=== PATIENT | female | born 1975 | race Caucasian/White ===

== ENCOUNTER → 2016-06-14 | Outpatient (CLI) | payer BC ==
[~2016-06-14] MED LIST: ADDE30TA PO; AMOX500T PO; BENA25TA3 PO; GABA300C5 PO; HALO1TAB PO; IBUP-232 PO; KETO10 PO; OMEP40CA2 PO; PERC10TA27 PO; ROBA500T PO; SOMA250T PO; SOMA350T PO; TRAM50TA PO; VENL75XR PO; XANA1TAB2 PO; ZANA4CAP PO
--- NOTE | 2016-06-14 12:53 | RADRPT ---
EXAM DATE/TIME: 06/14/2016 12:25 [facility] COMPARISON: No previous studies available for comparison. INDICATIONS : Evaluate for pneumothorax,pneumonia and communicable diseases. Pre-op neck surgery MEDICAL HISTORY : None. SURGICAL HISTORY : None. ENCOUNTER: Initial ACUITY: 1 day PAIN SCORE: 0/10 LOCATION: chest FINDINGS: PA and lateral views of the chest demonstrate the lungs to be symmetrically aerated without evidence of mass, infiltrate or effusion. The cardiomediastinal contours are unremarkable. Osseous structure s are intact. CONCLUSION: Normal examination. Ana Lundberg MD on June 14, 2016 at 12:51 Board Certified Radiologist. This report was verified electronically.
--- NOTE | 2016-06-15 11:31 | EKG ---
Date Performed: 06/14/2016 Time Performed: 11:55:16 PTAGE: 40 years EKG: Sinus rhythm Since previous tracing, no significant change noted NORMAL ECG PREVIOUS TRACING : 06/19/2008 13.41.34 DOCTOR: Faraz Boateng Interpretating Date/Time 06/15/2016 11:30:28
== END ==
LOC: CPRE 11:16
PROVIDERS: ATTEND Neurological Surgery
DX: Z01.810 Encounter for preprocedural cardiovascular examination (principal); Z01.811 Encounter for preprocedural respiratory examination; M48.02 Spinal stenosis, cervical region
CPT/HCPCS: 71020; 93005

== ENCOUNTER 2016-06-20 10:59 | Observation (INO) | payer BC ==
[~2016-06-20] VITALS: Ht 160 cm; Wt 53.4 kg
[~2016-06-20 10:59] MED LIST changes: -AMOX500T PO; -BENA25TA3 PO; -GABA300C5 PO; -KETO10 PO; +LACTATED RINGER'S 1000 ML INJ 1,000 ML IV ONE; +MORPHINE SULFATE 4 MG/ML INJ ONE; +NEOSTIGMINE 3 MG/3 ML SYR IV ONE; -OMEP40CA2 PO; +ONDANSETRON HCL 4 MG/2 ML VIAL IV PUSH ONE; +PROPOFOL 200 MG/20 ML AMP IV ONE; -ROBA500T PO; -SOMA350T PO; -TRAM50TA PO; -ZANA4CAP PO; +fentaNYL CITRATE 250 MCG/5 ML AMP ONE
[2016-06-20] MEDS ORDERED: SOMA350T PO (11:43)
[2016-06-20 11:48] VITALS: BP 94/60; PULSE 72; RESP 16; TEMP 98; O2SAT 97
[2016-06-20] MEDS ORDERED: INSULIN HUMAN REGULAR 1,000 UNITS/10 ML VIAL SQ PRN (12:00)
[2016-06-20] MEDS ORDERED: METOPROLOL TARTRATE 25 MG TAB PO PRN (12:00)
[2016-06-20] MEDS ORDERED: LACTATED RINGER'S 1000 ML IV SCH (12:00)
[2016-06-20] MEDS ORDERED: SODIUM CHLORID 0.9% 500 ML IV SCH (12:00)
[2016-06-20] MEDS ORDERED: oxyCODONE/ACETAMINOPHEN 10 MG/325 MG TAB PO ONE (12:30)
[2016-06-20] MEDS ORDERED: MIDAZOLAM HCL 5 MG/5 ML VIAL ONE (14:57)
[2016-06-20] MEDS ORDERED: ALPRAZolam 1 MG TAB PO PRN (15:00)
[2016-06-20] MEDS ORDERED: BISACODYL 10 MG SUPP PR PRN (15:00)
[2016-06-20] MEDS ORDERED: SODIUM CHLORIDE 0.9% FLUSH 5 ML FLUSH IVF PRN (15:00)
[2016-06-20] MEDS ORDERED: ACETAMINOPHEN/HYDROcodone 325 MG/10 MG TAB PO PRN ×2 (15:00)
[2016-06-20] MEDS: ceFAZolin 2 GM PREMIX 50 ML IV SCH ×3 (15:00→22:40)
[2016-06-20] MEDS ORDERED: MENTHOL LOZENGE SUCK-ON PRN (15:00)
[2016-06-20] MEDS ORDERED: IBUPROFEN 600 MG TAB PO PRN (15:00)
[2016-06-20] MEDS ORDERED: ONDANSETRON HCL 4 MG/2 ML VIAL IV PRN (15:00)
[2016-06-20] MEDS ORDERED: MORPHINE SULFATE 4 MG/ML INJ IV PUSH PRN (15:00)
[2016-06-20] MEDS ORDERED: ACETAMINOPHEN 325 MG TAB PO PRN (15:00)
[2016-06-20] MEDS ORDERED: oxyCODONE/ACETAMINOPHEN 10 MG/325 MG TAB PO PRN (15:00)
[2016-06-20] MEDS ORDERED: PERC10TA27 PO (15:03)
[2016-06-20] MEDS ORDERED: VANCOMYCIN HCL 1000 MG VIAL OTHER ONE (15:28)
[2016-06-20] MEDS ORDERED: GENTAMICIN SULFATE 80 MG/2 ML VIAL IRRIGATION ONE (16:02)
[2016-06-20] MEDS ORDERED: THROMBIN (TOPICAL) 5,000 UNIT VIAL TOPICAL ONE (16:02)
[2016-06-20] MEDS ORDERED: GELFOAM SIZE 100 TOP ONE (16:02)
[2016-06-20] MEDS ORDERED: NICOTINE 14 MG/24 HR PATCH TD ONE (17:45)
[2016-06-20] MEDS: NS + KCL 20 MEQ INJ 1,000 ML IV SCH (17:52)
[2016-06-20] MEDS ORDERED: *morphine SULFATE 8 MG/ML PERIprocedure ONLY ONE ×4 (17:54→21:09)
[2016-06-20] MEDS ORDERED: DO NOT ADM ANY ANTICOAGULANT DRUGS XX PRN (18:00)
[2016-06-20] MEDS: DEXAMETHASONE SOD PHOS 4 MG/ML VIAL IV SCH ×2 (18:05→22:40)
[2016-06-20] MEDS: CARISOPRODOL 350 MG TAB PO PRN (18:19)
[2016-06-20] MEDS: DEXTROAMPHETAMINE/AMPHETAMINE 30 MG TAB PO SCH (18:28)
--- NOTE | 2016-06-20 18:51 | RADRPT ---
EXAM DATE/TIME: 06/20/2016 15:38 [facility] COMPARISON: No previous studies available for comparison. INDICATIONS : Artificial disc placement C4, C5. MEDICAL HISTORY : None. SURGICAL HISTORY : Fusion, cervical. ENCOUNTER: Initial ACUITY: 1 day PAIN SCORE: Non-responsive. LOCATION: Cervical spine. FINDINGS: The patient is status post anterior cervical fusion at C5-C6. Artificial disc is seen at C4-C5. Ali gnment is anatomic. CONCLUSION: Anatomic alignment. Judson Donnelly MD FACR on June 20, 2016 at 18:16 Board Certified Radiologist. This report was verified electronically.
[2016-06-20] MEDS: VENLAFAXINE HCL XR 75 MG CAP PO SCH (19:35)
[2016-06-20] MEDS: CYCLOBENZAPRINE HCL 10 MG TAB PO PRN (19:52)
[2016-06-20] MEDS: MORPHINE SULFATE 4 MG/ML INJ IV PUSH PRN (19:55)
[2016-06-20 20:24] VITALS: BP 119/69; PULSE 77; O2SAT 98
[2016-06-20 20:30] VITALS: BP 113/70; PULSE 76; O2SAT 98
[2016-06-20] MEDS: REMOVE OLD NICODERM (NICOTINE) PATCH TD SCH (20:30)
[2016-06-20] MEDS: HALOPERIDOL 1 MG TAB PO SCH (20:40)
[2016-06-20] MEDS: DOCUSATE SODIUM 100 MG CAP PO SCH (20:48)
[2016-06-20] MEDS: SODIUM CHLORIDE 0.9% FLUSH 5 ML FLUSH IVF SCH (20:48)
[2016-06-20 21:00] VITALS: BP 118/79; PULSE 80; O2SAT 97
[2016-06-20 21:30] VITALS: BP 125/75; PULSE 76; O2SAT 94
[2016-06-20 22:00] VITALS: BP 124/73; PULSE 76; TEMP 97.9; O2SAT 96
[2016-06-21] MEDS: ceFAZolin 2 GM PREMIX 50 ML IV SCH (00:35)
[2016-06-21] MEDS: MORPHINE SULFATE 4 MG/ML INJ IV PUSH PRN ×5 (00:35→10:02)
[2016-06-21] MEDS: CARISOPRODOL 350 MG TAB PO PRN (01:44)
[2016-06-21 04:00] VITALS: BP 102/69; PULSE 74; RESP 18; TEMP 97.6; O2SAT 97
[2016-06-21] MEDS: DEXAMETHASONE SOD PHOS 4 MG/ML VIAL IV SCH (05:25)
[2016-06-21 08:00] VITALS: BP 107/70; PULSE 87; RESP 16; TEMP 97.9; O2SAT 97
[2016-06-21] MEDS ORDERED: NICOTINE 14 MG/24 HR PATCH TD SCH (09:00)
[2016-06-21] MEDS ORDERED: PANTOPRAZOLE SOD 40 MG DELAYED RELEASE TAB PO SCH (09:00)
[2016-06-21] MEDS: REMOVE OLD NICODERM (NICOTINE) PATCH TD SCH (09:00)
[2016-06-21] MEDS: HALOPERIDOL 1 MG TAB PO SCH (09:00)
[2016-06-21] MEDS: VENLAFAXINE HCL XR 75 MG CAP PO SCH (09:37)
[2016-06-21] MEDS: SODIUM CHLORIDE 0.9% FLUSH 5 ML FLUSH IVF SCH (09:37)
[2016-06-21] MEDS: CYCLOBENZAPRINE HCL 10 MG TAB PO PRN (09:37)
[2016-06-21] MEDS: DEXTROAMPHETAMINE/AMPHETAMINE 30 MG TAB PO SCH (09:37)
--- NOTE | 2016-06-21 09:51 | HHI.DCPOC ---
Discharge Care Plan Diagnosis: (1) S/P cervical discectomy Goals to Promote Your Health * To prevent worsening of your condition and complications * To maintain your health at the optimal level Directions to Meet Your Goals Take your medications as prescribed Follow your dietary instruction Follow activity as directed Keep your appointments as scheduled Take your immunizations and boosters as scheduled If your symptoms worsen call your PCP, if no PCP go to Urgent Care Center or Emergency Room Smoking is Dangerous to Your Health. Avoid second hand smoke Call the 24-hour hour crisis hotline for domestic abuse at Aria Flores Jun 21, 2016 09:51
[2016-06-21] MEDS: DOCUSATE SODIUM 100 MG CAP PO SCH (10:02)
[2016-06-21] MEDS: NS + KCL 20 MEQ INJ 1,000 ML IV SCH (10:30)
--- NOTE | 2016-06-21 15:44 | PD.OP ---
Operative Report Date of Surgery: Jun 20, 2016 Preoperative Diagnosis: C4-5 DISK HERNIATION Postoperative Diagnosis: C4-5 DISK HERNIATION Procedure: C4-5 anterior cervical discectomy and arthroplasty using Mobi C Anesthesia: general Surgeon: Osman Yo Patient Support Tech(s): Ileana Randhawa Operation and Findings: INDICATIONS FOR THE PROCEDURE Ms Nguyen is a 40 year-old male who presented with intractable neck pain and clinical evidence of C5 cervical radiculopathy. She was found to have a disk herniation at C4-5 causing significant mass effect on the nerve roots. she failed multiple modalities of nonsurgical treatment including phsycal therapy, analgesics, antiinflammatories, and pain management with mulriple epidural steroid injections. The severity of her pain and symptoms were affecting her quality of life. An anterior cervical discectomy and arthroplasty were indicated. The [id number] details of the surgical procedure, indications, alternatives, risks and potential complications were fully discussed with the patient. The patient fully understood. All his questions were answered. No guarantees were given. He voiced requesting the procedure and signed informed consents. Dr Hardy was offered the alternative of delaying the procedure and continuing with nonsurgical management. DETAILS OF THE SURGICAL PROCEDURE SURGICAL APPROACH A skin incision was made along the middle to inferior cervical crease with a # 10 blade. The dissection was carried out through the platysma exposing the sternocleidomastoid muscle. The cervical spine was approached following the fascial layers of the neck, just medial to the anterior border of the sternocleidomastoid and carotid sheath by a combination of sharp and dull dissection. The omohyoid muscle was identified and carefully dissected laterally and the deep cervical fascia was carefully opened. The longus colli muscles were retracted to each side of the midline. A marker was placed at the c4-5 disc space and a cross-table lateral x-ray performed with a C-arm. An AP xray was then obtained as well, and the midline of the disk space was defined. SURGICAL DECOMPRESSION In order to decompress the anterior surface of the spinal cord it was necessary to perform a microsurgical resection of the disk. At this point in the procedure the operating microscope was draped in the usual sterile fashion and brought to the field. The rest of the surgical procedure was performed using microdissection technique with the exception of the closure. Under the operative microscopic a self-retaining retractor was placed underneath the longus colli muscle. The annulus was incised with a #15 blade and microdiscectomy was then carefully carried out using angled curets and pituitary forceps. The patient had a large disk extrusion which was producing mass affect on the exiting nerve root. This was carefully dissected with a nerve hock and resected with a think foot plate 2 mm Kerrison under high magnification. The posterior longitudinal ligament was then elevated with an angled curet and incised with a 15 bladed knife. A careful resection of the posterior longitudinal ligament was carried out using a thin footplate 2 mm Kerrison. Extruded disk fragments causing mechanical compression over the exiting C5 nerve root were carefully dissected. The decompression was then carried out laterally, and a bilateral foraminotomy was performed with a 2 mm thin foot Kerrison. The epidural space was the systematically assessed with a nerve hook in search for disk fragments of scar tissue. An excellent decompression was achieved in both, the dural sac and bilateral exiting nerve roots. The incision was then irrigated with a large amount of antibiotic solution INTERBODY ARTHROPLASTY In order to avoid collapse of the disk space which would result in bilateral foraminal stenosis, and in order to maintain disk space height and function minimally development of adjacent level degeneration, it was necessary to place an interbody device. At this point of the procedure, gentle distraction was applied. The size of the interbody device was then assessed using a trial, and a cross table xray was done for confirmation of appropriate size and position of the device. Then the disk space was irrigated with antibiotic solution, and a 15mm by 6mm Mobi C artificial disk was carefully impacted into the disc space C4-5. An excellent position of the device was achieved. This was confirmed anatomically by feeling the space posterior to the implant and distance to the anterior surface of the dural sac. Radiological confirmation of the position was performed with a cross table AP and lateral X-ray views, performed with the C-arm. COMPLETION OF THE SURGICAL PROCEDURE Once that each interbody device was in an appropriate position, the distraction was discontinued. The position of the device as well as alignment of the spine were assessed anatomically by direct visualization, and radiologically by performing an AP and lateral X-ray of the cervical spine with the C-arm. The position of the implant was excellent. The incision was irrigated with several liters of antibiotic solution. Hemostasis was achieved with a bipolar. A 7 mm Jarrell-Hart drain was left in the prevertebral space and externalized through a separate stab incision. The incision was then closed in layers. 3-0 Vicryl with interrupted sutures was used to close the platysma and subcutaneous tissue. The skin was closed with 4- 0 running subcuticular Vicryl and Dermabond was applied to the skin. The drain was secured with a 3-0 nylon. At the end of the procedure the sponge, needle and instrument counts were all correct. The estimated blood loss was less than 40-50 cc. No blood transfusion was given. No intraoperative complications occurred. The patient received prophylactic antibiotics. The patient was then extubated and transferred to the recovery room in stable condition. Osman Yo MD Jun 21, 2016 15:44
--- NOTE | 2016-06-21 15:48 | HHI.DS ---
Aria Flores 06/21/16 1548: Discharge Summary Admission Date Jun 20, 2016 at 14:58 Discharge Date: Jun 21, 2016 Admitting Diagnosis s/p anterior cervical disectomy and arthroplasty (1) S/P cervical discectomy Brief History Ms Nguyen is a 40 year-old male who presented with intractable neck pain and clinical evidence of C5 cervical radiculopathy. She was found to have a disk herniation at C4-5 causing significant mass effect on the nerve roots. she failed multiple modalities of nonsurgical treatment including physial therapy, analgesics, antiinflammatories, and pain management with multiple epidural steroid injections. The severity of her pain and symptoms were affecting her quality of life. An anterior cervical discectomy and arthroplasty were indicated. Imaging Last Impressions Cervical Spine X-Ray 06/20/16 0000 Signed Impressions: Service Date/Time: Monday, June 20, 2016 15:38 - CONCLUSION: Anatomic alignment. Judson Donnelly MD [facility] Hospital Course Ms. Nguyen underwent a C4-5 anterior cervical discectomy and arthroplasty using Mobi C on Jun 20, 2016. Her surgery went well without complications. She will be discharged home in stable conditions. Wound care, activity restrictions, and signs and symptoms to watch for were discussed. She will be discharged in stable conditions. Pt Condition on Discharge: Stable Discharge Disposition: Discharge Home Discharge Instructions DIET: Follow Instructions for: Heart Healthy Diet ACTIVITIES You can perform: Weight Bearing As Noe ADDITIONAL Activity Instructio: Avoid strenuous activities, heavy lifting, overhead activities, repetitive bending, twisting, pushing, pulling or any activities which might result in stress over the spine. Avoid situtation that will put at risk for falls. Use assistive device as needed for walking. Wear cervical collar at all times, may remove only with meals. Changed Medications: Oxycodone-Acetaminophen (Percocet) 10-325 mg Tab 1 TAB PO Q8HR PRN PAIN #90 Ref 0 TAB (Changed from: Q4H) Continued Medications: Alprazolam (Xanax) 1 Mg Tab 1 MG PO Q6H PRN ANXIETY Ref 0 TAB Amphetamine-Dextroamphetamine (Adderall) 30 Mg Tab 30 MG PO DAILY Avoid late evening doses. Space doses at least 4 to 6 hours if more than once/day dosing. Hyperactivity Control #30 Ref 0 TAB Carisoprodol (Soma) 350 Mg Tab 350 MG PO BID PRN PAIN Ref 0 TAB Haloperidol (Haloperidol) 1 Mg Tab 1 MG PO BID Ref 0 TAB Ibuprofen (Ibuprofen) 600 Mg Tab 600 MG PO Q6H PRN Pain/Inflammation #40 Ref 0 TAB Venlafaxine ER 24 HR (Effexor XR 24 HR) 75 Mg Cap 225 MG PO DAILY #30 Ref 0 Osman Guerra MD 06/21/16 1549: Discharge Summary Discharge Instructions Changed Medications: Oxycodone-Acetaminophen (Percocet) 10-325 mg Tab 1 TAB PO Q8HR PRN PAIN #90 Ref 0 TAB (Changed from: Q4H) Continued Medications: Alprazolam (Xanax) 1 Mg Tab 1 MG PO Q6H PRN ANXIETY Ref 0 TAB Amphetamine-Dextroamphetamine (Adderall) 30 Mg Tab 30 MG PO DAILY Avoid late evening doses. Space doses at least 4 to 6 hours if more than once/day dosing. Hyperactivity Control #30 Ref 0 TAB Carisoprodol (Soma) 350 Mg Tab 350 MG PO BID PRN PAIN Ref 0 TAB Haloperidol (Haloperidol) 1 Mg Tab 1 MG PO BID Ref 0 TAB Ibuprofen (Ibuprofen) 600 Mg Tab 600 MG PO Q6H PRN Pain/Inflammation #40 Ref 0 TAB Venlafaxine ER 24 HR (Effexor XR 24 HR) 75 Mg Cap 225 MG PO DAILY #30 Ref 0 Aria Ybarra Jun 21, 2016 15:48 Osman Yo MD Jun 21, 2016 15:49
--- NOTE | 2016-06-21 16:04 | PD.OP ---
Operative Report Date of Surgery: Jun 21, 2016 Preoperative Diagnosis: C4-5 DISK HERNIATION Postoperative Diagnosis: C4-5 DISK HERNIATION Procedure: C4-5 anterior cervical discectomy and arthroplasty using Mobi C Anesthesia: general endotracheal Surgeon: Osman Yo Manager Corporate(s): Ileana Randhawa Operation and Findings: INDICATIONS FOR THE PROCEDURE Ms Nguyen is a 40 year-old male who presented with intractable neck pain and clinical evidence of C5 cervical radiculopathy. She was found to have a disk herniation at C4-5 causing significant mass effect on the nerve roots. she failed multiple modalities of nonsurgical treatment including phsycal therapy, analgesics, antiinflammatories, and pain management with mulriple epidural steroid injections. The severity of her pain and symptoms were affecting her quality of life. An anterior cervical discectomy and arthroplasty were indicated. The [id number] details of the surgical procedure, indications, alternatives, risks and potential complications were fully discussed with the patient. She fully understood. All her questions were answered. No guarantees were given. She voiced requesting the procedure and signed informed consents. Dr Hardy was offered the alternative of delaying the procedure and continuing with nonsurgical management. DETAILS OF THE SURGICAL PROCEDURE SURGICAL APPROACH A skin incision was made along the middle to inferior cervical crease with a # 10 blade. The dissection was carried out through the platysma exposing the sternocleidomastoid muscle. The cervical spine was approached following the fascial layers of the neck, just medial to the anterior border of the sternocleidomastoid and carotid sheath by a combination of sharp and dull dissection. The omohyoid muscle was identified and carefully dissected laterally and the deep cervical fascia was carefully opened. The longus colli muscles were retracted to each side of the midline. A marker was placed at the c4-5 disc space and a cross-table lateral x-ray performed with a C-arm. An AP xray was then obtained as well, and the midline of the disk space was defined. SURGICAL DECOMPRESSION In order to decompress the anterior surface of the spinal cord it was necessary to perform a microsurgical resection of the disk. At this point in the procedure the operating microscope was draped in the usual sterile fashion and brought to the field. The rest of the surgical procedure was performed using microdissection technique with the exception of the closure. Under the operative microscopic a self-retaining retractor was placed underneath the longus colli muscle. The annulus was incised with a #15 blade and microdiscectomy was then carefully carried out using angled curets and pituitary forceps. The patient had a large disk extrusion which was producing mass affect on the exiting nerve root. This was carefully dissected with a nerve hock and resected with a think foot plate 2 mm Kerrison under high magnification. The posterior longitudinal ligament was then elevated with an angled curet and incised with a 15 bladed knife. A careful resection of the posterior longitudinal ligament was carried out using a thin footplate 2 mm Kerrison. Extruded disk fragments causing mechanical compression over the exiting C5 nerve root were carefully dissected. The decompression was then carried out laterally, and a bilateral foraminotomy was performed with a 2 mm thin foot Kerrison. The epidural space was the systematically assessed with a nerve hook in search for disk fragments of scar tissue. An excellent decompression was achieved in both, the dural sac and bilateral exiting nerve roots. The incision was then irrigated with a large amount of antibiotic solution INTERBODY ARTHROPLASTY In order to avoid collapse of the disk space which would result in bilateral foraminal stenosis, and in order to maintain disk space height and function minimally development of adjacent level degeneration, it was necessary to place an interbody device. At this point of the procedure, gentle distraction was applied. The size of the interbody device was then assessed using a trial, and a cross table xray was done for confirmation of appropriate size and position of the device. Then the disk space was irrigated with antibiotic solution, and a 15mm by 6mm Mobi C artificial disk was carefully impacted into the disc space C4-5. An excellent position of the device was achieved. This was confirmed anatomically by feeling the space posterior to the implant and distance to the anterior surface of the dural sac. Radiological confirmation of the position was performed with a cross table AP and lateral X-ray views, performed with the C-arm. COMPLETION OF THE SURGICAL PROCEDURE Once that each interbody device was in an appropriate position, the distraction was discontinued. The position of the device as well as alignment of the spine were assessed anatomically by direct visualization, and radiologically by performing an AP and lateral X-ray of the cervical spine with the C-arm. The position of the implant was excellent. The incision was irrigated with several liters of antibiotic solution. Hemostasis was achieved with a bipolar. The incision was then closed in layers. 3-0 Vicryl with interrupted sutures was used to close the platysma and subcutaneous tissue. The skin was closed with 4-0 running subcuticular Vicryl and Dermabond was applied to the skin. The drain was secured with a 3-0 nylon. At the end of the procedure the sponge, needle and instrument counts were all correct. The estimated blood loss was less than 40-50 cc. No blood transfusion was given. No intraoperative complications occurred. The patient received prophylactic antibiotics. The patient was then extubated and transferred to the recovery room in stable condition. Osman Yo MD Jun 21, 2016 16:04
[2016-06-23] MEDS ORDERED: BENA25TA3 PO (10:39)
[2016-06-23] MEDS ORDERED: AMOX500T PO (10:39)
[2016-07-03] MEDS ORDERED: OMEP40CA2 PO (16:35)
[2016-07-03] MEDS ORDERED: IBUP-232 PO (16:35)
[2016-07-11] MEDS ORDERED: GABA300C5 PO (11:49)
[2016-07-11] MEDS ORDERED: TRAM50TA PO (11:49)
[2016-07-11] MEDS ORDERED: ZANA4CAP PO (11:49)
== END 2016-06-21 10:50 | disposition home or self-care (01) ==
LOC: HSDC 10:59 → INTOOBSV 14:58 → HSDI 14:58 → HPAC 06-21 00:46
PROVIDERS: ADMIT Neurological Surgery; ATTEND Neurological Surgery
DX: M50.121 Cervical disc disorder at C4-C5 level with radiculopathy (principal)
CPT/HCPCS: 00600; 22856; 72040; 76000; C1713; G0378; J0690; J1100; J1580; J2250; J2270; J2405; J2710; J3010; J3370; J3480; J7120; L0150; L0172

== ENCOUNTER 2016-08-15 07:37 | Emergency (ER) | payer BC ==
[~2016-08-15] VITALS: Ht 157.5 cm; Wt 51.0 kg
[~2016-08-15 07:37] MED LIST changes: +AMOX500T PO; +BENA25TA3 PO; +GABA300C5 PO; -LACTATED RINGER'S 1000 ML INJ 1,000 ML IV ONE; -MORPHINE SULFATE 4 MG/ML INJ ONE; -NEOSTIGMINE 3 MG/3 ML SYR IV ONE; +OMEP40CA2 PO; -ONDANSETRON HCL 4 MG/2 ML VIAL IV PUSH ONE; -PROPOFOL 200 MG/20 ML AMP IV ONE; -SOMA250T PO; +SOMA350T PO; +TRAM50TA PO; +ZANA4CAP PO; -fentaNYL CITRATE 250 MCG/5 ML AMP ONE
[2016-08-15 07:39] VITALS: BP 144/84; PULSE 104; RESP 18; TEMP 98.2; O2SAT 96
--- NOTE | 2016-08-15 08:03 | PD ---
HPI Chief Complaint: Pain: Acute or Chronic Time Seen by Provider: 08:03 Travel History International Travel<30 days: No Contact w/Intl Traveler<30days: No Traveled to known affect area: No History of Present Illness HPI 40-year-old female presents to the emergency Department with complaint of left wrist pain for 3-4 years. She reports she has complex regional pain syndrome and no one understands her disease. Says she was seen at another hospital last night for the same complaint. Says she needs an injection of Toradol and Norflex for a few hours of relief. She does have Percocet at home but does not want to take the narcotics. Says her pain is so intense that she has had thoughts of suicide in the past. She denies suicidal ideation at this time. Denies injury. Has a wrist splint for support. Denies taking any medications for her pain today. Denies fever, chills, nausea, vomiting. No known allergies. Has an established primary care provider but doesn't know their name. Sees pain management but does not have it established at this time. No other modifying factors or associated signs and symptoms. PFSH Past Medical History Blood Disorders: No Anxiety: Yes Depression: Yes Cancer: No Cardiovascular Problems: No Diabetes: No Diminished Hearing: No Endocrine: No Genitourinary: No Headaches: Yes Hepatitis: No Hiatal Hernia: No Immune Disorder: No Musculoskeletal: No Neurologic: Yes (CRPS (CHRONIC REGIONAL PAIN SYNDROME); NECK PAIN) Psychiatric: No Reproductive: No Respiratory: No Thyroid Disease: No ?: Not LMP: 07/24/16 Past Surgical History AICD: No Body Medical Devices: PLATE NECK Joint Replacement: No Oral Surgery: Yes (EXC. WISDOM TEETH) Pacemaker: No Other Surgery: Yes (neck surgery 2008) Social History Alcohol Use: Yes (2 bottles of wine 1-2x/week) Tobacco Use: Yes (1 ppd cigarettes) Substance Use: No Allergies-Medications (Allergen,Severity, Reaction): Coded Allergies: No Known Allergies (Verified , 07/11/16) Reported Meds & Prescriptions Reported Meds & Active Scripts Active Robaxin (Methocarbamol) 500 Mg Tab 500 Mg PO QID PRN Ketorolac (Ketorolac Tromethamine) 10 Mg Tab 10 Mg PO TID PRN 5 Days Ibuprofen 600 Mg Tab 600 Mg PO Q6H PRN Percocet (Oxycodone-Acetaminophen) 10-325 mg Tab 1 Tab PO Q8HR PRN Reported Soma (Carisoprodol) 350 Mg Tab 350 Mg PO BID PRN Effexor XR 24 HR (Venlafaxine HCl) 75 Mg Cap 225 Mg PO DAILY Haloperidol 1 Mg Tab 1 Mg PO BID Xanax (Alprazolam) 1 Mg Tab 1 Mg PO Q6H PRN Adderall (Amphetamine-Dextroamphetamine) 30 Mg Tab 30 Mg PO DAILY Avoid late evening doses. Space doses at least 4 to 6 hours if more than once/day dosing. Review of Systems Except as stated in HPI: all other systems reviewed are Neg Physical Exam Narrative GENERAL: Well-nourished, well-developed female patient, in no acute distress; tearful SKIN: Warm and dry. HEAD: Atraumatic. Normocephalic. EYES: Pupils equal. No scleral icterus. No injection or drainage. ENT: Mucosa pink and moist. Airway patent. NECK: Trachea midline. CARDIOVASCULAR: Regular rate . RESPIRATORY: No accessory muscle use. GASTROINTESTINAL: Flat. MUSCULOSKELETAL: Left wrist splint in place. No obvious deformities. No clubbing. No cyanosis. No edema. NEUROLOGICAL: Awake and alert. Oriented 3. No obvious cranial nerve deficits. Motor grossly within normal limits. Normal speech. Data Data Last Documented VS Vital Signs Date Time Temp Pulse Resp B/P Pulse Ox O2 Delivery O2 Flow Rate FiO2 08/15/16 07:39 98.2 104 18 144/84 96 Orders Ketorolac Inj (Toradol Inj) (08/15/16 08:15) Orphenadrine Inj (Norflex Inj) (08/15/16 08:15) Ketorolac Inj (Toradol Inj) (08/15/16 08:15) [facility] Medical Decision Making Medical Screen Exam Complete: Yes Emergency Medical Condition: Yes Medical Record Reviewed: Yes Differential Diagnosis Malingering, narcotic seeking, medical clearance, pain management Narrative Course 40-year-old female with complex regional pain syndrome complaining of left wrist pain for the last 3-4 years. Patient is tearful and crying, stating no one understands her disease. Denies injury. She has a splint for support. Normally follows up with pain management but does not have an established doctor at this time. Is requesting Toradol and Norflex injections. Heart rate on physical exam is approximately 90 bpm. Toradol and Norflex administered in the ER. Toradol and Robaxin prescribed for home. Instructed patient to follow up with pain management. Patient verbalizes understanding and agreement with treatment plan. Patient is medically cleared and stable for discharge. Discussed reasons to return to the emergency department. Instructed patient to follow up with primary care provider. Patient agrees with treatment plan. The patients vital signs are stable and the patient is stable for outpatient follow- up and treatment. Patient discharged home, stable and in no acute distress. Diagnosis Primary Impression: Left wrist pain Referrals: Primary Care Physician Patient Instructions: General Instructions Additional Instructions: Follow-up with pain management Follow-up with primary care provider Return to the emergency department immediately with worsening of symptoms Med/Other Pt SpecificInfo: Prescription(s) given Scripts Methocarbamol (Robaxin)500 Mg [id number] Mg PO QID PRN (MUSCLE SPASM) #30 TAB Ref 0 Prov:Amanda Cornell 08/15/16 Ketorolac 10 Mg Tab10 Mg PO TID PRN (PAIN SCALE 1 TO 10) 5 Days Ref 0 Prov:Amanda Cornell 08/15/16 Disposition: 01 DISCHARGE HOME Condition: Stable Amanda Cornell Aug 15, 2016 08:03
[2016-08-15] MEDS ORDERED: KETOROLAC TROMETHAMINE 60 MG/2 ML (IM) VIAL IM ONE ×2 (08:15)
[2016-08-15] MEDS ORDERED: ROBA500T PO (08:15)
[2016-08-15] MEDS ORDERED: ORPHENADRINE INJ 60 MG/2 ML AMP IM ONE (08:15)
[2016-08-15] MEDS ORDERED: KETO10 PO (08:15)
== END 2016-08-15 08:43 | disposition home or self-care (01) ==
LOC: NEPB 07:37
DX: M25.532 Pain in left wrist (principal); G90.50 Complex regional pain syndrome I, unspecified; F17.210 Nicotine dependence, cigarettes, uncomplicated
CPT/HCPCS: 96372; 99283; J1885; J2360

== ENCOUNTER 2016-10-31 14:35 | Inpatient (IN) | payer BC, OTHER ==
[~2016-10-31] VITALS: Ht 157.5 cm; Wt 51.1 kg
[~2016-10-31 14:35] MED LIST changes: -AMOX500T PO; -BENA25TA3 PO; -GABA300C5 PO; +KETO10 PO; -OMEP40CA2 PO; +ROBA500T PO; -TRAM50TA PO; -ZANA4CAP PO
[2016-10-31 14:53] VITALS: BP 109/66; PULSE 84; RESP 16; TEMP 97.8; O2SAT 100
[2016-10-31 15:12] LABS: AUTOMATED NEUTROPHIL # 3.5 TH/MM3 (1.8-7.7); BASOPHIL # 0.1 TH/MM3 (0-0.2); BASOPHIL % 1.1 % (0.0-2.0); EOSINOPHIL # 0.1 TH/MM3 (0-0.4); EOSINOPHIL % 1.2 % (0.0-4.0); HEMATOCRIT 38.9 % (35.0-46.0); HEMO FLAGS DIFF FINAL; LYMPHOCYTE # 1.8 TH/MM3 (1.0-4.8); MEAN CELL VOLUME 87.5 FL (80.0-100.0); MEAN CORPUSCULAR HEMOGLOBIN 29.2 PG (27.0-34.0); MEAN CORPUSCULAR HGB CONC 33.3 % (32.0-36.0); MONO % 5.7 % (0.0-8.0); PLATELET COUNT 315 TH/MM3 (150-450); RED BLOOD COUNT 4.44 MIL/MM3 (4.00-5.30); RED CELL DISTRIBUTION WIDTH 12.3 % (11.6-17.2); WHITE BLOOD COUNT 5.7 TH/MM3 (4.0-11.0)
[2016-10-31 15:18] LABS: BACTERIA, URINE RARE /hpf; BLOOD, URINE TRACE (NEG); COMMENT (UR) CULT NOT INDICATED; CULTURE IF INDICATED CULT NOT INDICATED; GLUCOSE,URINE NEG (NEG); KETONE, URINE NEG (NEG); NITRITE,URINE NEG (NEG); PH, URINE 5.5 (5.0-8.5); SQUAMOUS EPITHELIAL CELL URINE 1 /hpf (0-5); URINE COLOR YELLOW (YELLW/STRAW)
--- NOTE | 2016-10-31 15:19 | PD ---
HPI Chief Complaint: Psychiatric Symptoms Time Seen by Provider: 15:13 Travel History International Travel<30 days: No Contact w/Intl Traveler<30days: No Traveled to known affect area: No History of Present Illness HPI This patient was examined in the presence of a female nurse. 41-year-old female presents under [place] act initiated by [facility]'s office. According to her paperwork, "Ileana was upset with her attorney general and stated she would be better off . 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 This has resulted in chronic pain of the left hand, no chronic pain of her whole body. This caused depression, anxiety. She reports that she has been frustrated in regards to the medical progress of her illness and the frustration boiled up today resulting in her sending multiple text messages to her employer. 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 She denies any desire to hurt herself or anyone else. She denies any drug or alcohol use. She complains of chronic pain at this time. She has no other acute medical complaints. [facility] Past Medical History Blood Disorders: No Anxiety: Yes Depression: Yes Cancer: No Cardiovascular Problems: No Diabetes: No Diminished Hearing: No Endocrine: No Genitourinary: No Headaches: Yes Hepatitis: No Hiatal Hernia: No Immune Disorder: No Musculoskeletal: No Neurologic: Yes (CRPS (CHRONIC REGIONAL PAIN SYNDROME); NECK PAIN) Psychiatric: No Reproductive: No Respiratory: No Thyroid Disease: No Tetanus Vaccination: < 5 Years ?: Not Past Surgical History AICD: No Body Medical Devices: PLATE NECK Joint Replacement: No Oral Surgery: Yes (EXC. WISDOM TEETH) Pacemaker: No Other Surgery: Yes (neck surgery 2008) Social History Alcohol Use: Yes (2 bottles of wine 1-2x/week) Tobacco Use: Yes (1 ppd cigarettes) Substance Use: No Allergies-Medications (Allergen,Severity, Reaction): Coded Allergies: No Known Allergies (Verified , 10/31/16) Reported Meds & Prescriptions Reported Meds & Active Scripts Active Robaxin (Methocarbamol) 500 Mg Tab 500 Mg PO QID PRN Ketorolac (Ketorolac Tromethamine) 10 Mg Tab 10 Mg PO TID PRN 5 Days Ibuprofen 600 Mg Tab 600 Mg PO Q6H PRN Percocet (Oxycodone-Acetaminophen) 10-325 mg Tab 1 Tab PO Q8HR PRN Reported Soma (Carisoprodol) 350 Mg Tab 350 Mg PO BID PRN Effexor XR 24 HR (Venlafaxine HCl) 75 Mg Cap 225 Mg PO DAILY Haloperidol 1 Mg Tab 1 Mg PO BID Xanax (Alprazolam) 1 Mg Tab 1 Mg PO Q6H PRN Adderall (Amphetamine-Dextroamphetamine) 30 Mg Tab 30 Mg PO DAILY Avoid late evening doses. Space doses at least 4 to 6 hours if more than once/day dosing. Review of Systems Except as stated in HPI: all other systems reviewed are Neg Physical Exam Narrative GENERAL: Well-developed well-nourished female in no acute distress, tearful. SKIN: Warm and dry. HEAD: Atraumatic. Normocephalic. EYES: Pupils equal and round. No scleral icterus. No injection or drainage. ENT: No nasal bleeding or discharge. Mucous membranes pink and moist. NECK: Trachea midline. No JVD. CARDIOVASCULAR: Regular rate and rhythm. No murmur appreciated. RESPIRATORY: No accessory muscle use. Clear to auscultation. Breath sounds equal bilaterally. GASTROINTESTINAL: Abdomen soft, non-tender, nondistended. Hepatic and splenic margins not palpable. MUSCULOSKELETAL: No obvious deformities. Velcro splint of the left wrist. NEUROLOGICAL: Awake and alert. No obvious cranial nerve deficits. Motor grossly within normal limits. Normal speech. PSYCHIATRIC: Depressed, anxious, tearful. Data Data Last Documented VS Vital Signs Date Time Temp Pulse Resp B/P Pulse Ox O2 Delivery O2 Flow Rate FiO2 10/31/16 14:53 97.8 84 16 109/66 100 Orders Complete Blood Count With Diff (10/31/16 14:44) Comprehensive Metabolic Panel (10/31/16 14:44) Urinalysis - C+S If Indicated (10/31/16 14:44) Psych Screen (10/31/16 14:44) Diet Regular Basic (10/31/16 Dinner) Drug Screen, Random Urine (10/31/16 14:44) Ed Urine Pregnancytest Poc (5/30/17 14:44) Labs Laboratory Tests Test 10/31/16 15:00 White Blood Count 5.7 TH/MM3 Red Blood Count 4.44 MIL/MM3 Hemoglobin 13.0 GM/DL Hematocrit 38.9 % Mean Corpuscular Volume 87.5 FL Mean Corpuscular Hemoglobin 29.2 PG Mean Corpuscular Hemoglobin 33.3 % Concent Red Cell Distribution Width 12.3 % Platelet Count 315 TH/MM3 Mean Platelet Volume 7.8 FL Neutrophils (%) (Auto) 61.0 % Lymphocytes (%) (Auto) 31.0 % Monocytes (%) (Auto) 5.7 % Eosinophils (%) (Auto) 1.2 % Basophils (%) (Auto) 1.1 % Neutrophils # (Auto) 3.5 TH/MM3 Lymphocytes # (Auto) 1.8 TH/MM3 Monocytes # (Auto) 0.3 TH/MM3 Eosinophils # (Auto) 0.1 TH/MM3 Basophils # (Auto) 0.1 TH/MM3 CBC Comment DIFF FINAL Differential Comment Urine Color YELLOW Urine Turbidity CLEAR Urine pH 5.5 Urine Specific [place] 1.010 Urine Protein NEG mg/dL Urine Glucose (UA) NEG mg/dL Urine Ketones NEG mg/dL Urine Occult Blood TRACE Urine Nitrite NEG Urine Bilirubin NEG Urine Urobilinogen LESS THAN 2.0 MG/DL Urine Leukocyte Esterase NEG Urine RBC LESS THAN 1 /hpf Urine WBC 1 /hpf Urine Squamous Epithelial 1 /hpf Cells Urine Bacteria RARE /hpf Microscopic Urinalysis Comment CULT NOT INDICATED Sodium Level 140 MEQ/L Potassium Level 3.6 MEQ/L Chloride Level 104 MEQ/L Carbon Dioxide Level 27.7 MEQ/L Anion Gap 8 MEQ/L Blood Urea Nitrogen 9 MG/DL Creatinine 0.65 MG/DL Estimat Glomerular Filtration 100 ML/MIN Rate Random Glucose 99 MG/DL Calcium Level 8.9 MG/DL Aspartate Amino Transf 15 U/L (AST/SGOT) Alanine Aminotransferase 18 U/L (ALT/SGPT) Albumin 4.3 GM/DL Urine Opiates Screen NEG Urine Barbiturates Screen NEG Urine Amphetamines Screen POS Urine Benzodiazepines Screen POS Urine Cocaine Screen NEG Urine Cannabinoids Screen NEG MDM Medical Decision Making Medical Screen Exam Complete: Yes Emergency Medical Condition: Yes Medical Record Reviewed: Yes Differential Diagnosis Adjustment reaction, acute psychosis, major depressive disorder, depressive disorder not otherwise specified, substance induced mood disorder Narrative Course 41-year-old female presents under [place] act initiated by the police department after sending text messages insinuating a suicidal intent to her land title examiner. Mental health screening discussed with the patient. Psychiatric screen ordered. Lab work reveals positive amphetamines, positive benzodiazepines, otherwise unremarkable. The patient is medically cleared for psychiatric disposition. Diagnosis Primary Impression: Adjustment reaction Qualified Code: F43.20 - Adjustment disorder, unspecified type Hero Juarez October 31, 2016 15:19
[2016-10-31 15:24] LABS: AMPHETAMINE, URINE POS (NEG); BARBITURATES, URINE NEG (NEG); COCAINE, URINE NEG (NEG)
[2016-10-31 15:34] LABS: ALT (GPT) 18 U/L (10-53); ANION GAP 8 MEQ/L (5-15); AST (GOT) 15 U/L (15-37); BICARBONATE 27.7 MEQ/L (21.0-32.0); BLOOD UREA NITROGEN 9 MG/DL (7-18); CHLORIDE 104 MEQ/L (98-107); GLOMERULAR FILTRATION RATE 100 ML/MIN (>89); POTASSIUM 3.6 MEQ/L (3.5-5.1); SODIUM (NA) 140 MEQ/L (136-145)
[2016-10-31 15:37] LABS: ALKALINE PHOSPHATASE 43 U/L (45-117); TOTAL BILIRUBIN ADULT 0.4 MG/DL (0.2-1.0)
[2016-10-31 17:19] VITALS: BP 105/72; PULSE 80; RESP 16; O2SAT 100
[2016-10-31 19:06] VITALS: BP 130/82; PULSE 102; RESP 16; O2SAT 100
[2016-10-31] MEDS ORDERED: FLUMAZENIL 0.5 MG/5 ML VIAL IV PUSH PRN (21:00)
[2016-10-31] MEDS ORDERED: LORazepam 2 MG TAB PO PRN (21:00)
[2016-10-31] MEDS ORDERED: ALUMINUM/MAGNESIUM/SIMETH 30 ML CUP PO PRN (21:00)
[2016-10-31] MEDS ORDERED: BENZTROPINE MESYLATE 2 MG/2 ML VIAL IM PRN (21:00)
[2016-10-31] MEDS ORDERED: ACETAMINOPHEN 325 MG TAB PO PRN (21:00)
[2016-10-31] MEDS ORDERED: LORazepam 2 MG/ML VIAL IV PUSH PRN ×4 (21:00)
[2016-10-31] MEDS ORDERED: LORazepam 1 MG TAB PO PRN (21:00)
[2016-10-31] MEDS ORDERED: BENZTROPINE MESYLATE 1 MG TAB PO PRN (21:00)
[2016-10-31] MEDS ORDERED: MAGNESIUM HYDROXIDE SUSP 30 ML CUP PO PRN (21:00)
[2016-10-31] MEDS ORDERED: diphenhydrAMINE HCL 50 MG CAP PO PRN (21:00)
[2016-10-31 22:27] VITALS: BP 102/60; PULSE 91; RESP 17; O2SAT 99
[2016-10-31 23:20] VITALS: BP 105/69; PULSE 94; RESP 20; TEMP 98.5; O2SAT 97
[2016-10-31] MEDS: hydrOXYzine HCL 50 MG TAB PO PRN (23:45)
[2016-11-01 06:08] VITALS: BP 123/70; PULSE 95; RESP 18; TEMP 98.7; O2SAT 95
[2016-11-01] MEDS ORDERED: REMOVE OLD PATCH T-DERMAL SCH (09:00)
[2016-11-01] MEDS ORDERED: NICOTINE 21 MG/24 HR PATCH T-DERMAL SCH (09:00)
[2016-11-01 10:35] LABS: HDL CHOLESTEROL 45.6 MG/DL (40.0-60.0); LDL CHOLESTEROL 92 MG/DL (0-99)
[2016-11-01] MEDS: hydrOXYzine HCL 50 MG TAB PO PRN (12:37)
--- NOTE | 2016-11-01 13:54 | HHI.HP ---
Provisional Diagnosis Admission Date October 31, 2016 at 20:47 [place]. Adjustment disorder with mixed disturbances of emotion and conduct F 43.25 Certification of Person's Competence To Provide Express and Informed Consent I have personally examined Ileana Nguyen , a person being served at [facility] on, November 01, 2016 13:44. Express and informed consent means consent voluntarily given in writing, by a competent person, after sufficient explanation and disclosure of the subject matter involved to enable the person to make a knowing and willful decision without any element of force, fraud, deceit, duress, or other form of constraint or coercion. This person is 18 years of age or older, is not now known to be incompetent to consent to treatment with a guardian advocate, and does not have a health care surrogate or proxy currently making medical treatment decisions. I have found this person to be one of the following: [xxx] Competent to provide express and informed consent, as defined above, for voluntary admission to this facility and is competent to provide express and informed consent for treatment. He/she has the consistent capacity to make well reasoned, willful, and knowing decisions concerning his or her medical or mental health treatment. The person fully and consistently understands the purpose of the admission for examination/placement and is fully capable of personally exercising all rights assured [place] Incompetent to provide express and informed consent to voluntary admission, and this is incompetent to provide express and informed consent to treatment. The person must be transferred to involuntary status and a petition for a guardian advocate filed with the Circuit Court. [] Refusing to provide express and informed consent to voluntary admission but is competent to provide express and informed consent for treatment. The person must be discharged or transferred to involuntary status. Form shall be completed within 24 hours of a person's arrival at the receiving facility and filed in the clinical record of each person: 1. Admitted on a voluntary basis 2. Permitted to provide express and informed consent to his/her own treatment 3. Allowed to transfer from involuntary to voluntary status 4. Prior to permitting a person to consent to his or her own treatment after having been previously found incompetent to consent to treatment. History of Present Illness Capacity: Has Capacity HPI Patient is a 41-year-old white female who comes here under [place] act by the [facility] dated 10/31/16 at 1:21 PM that documented reviewed and agreed with essentially stating that the patient was upset with her assistant prosecuting attorney and stated she would be better off . It appears patient also sent approximately 200 text messages stating that she was upset with them and would be better off . Patient seen screened in the ED urine toxicology positive for that amines and benzodiazepines. Of interest patient also seen here on about 11/16/10 that that time urine toxicology positive for opiates and benzodiazepines cocaine and marijuana. At the present time patient laying quietly in her bed nurse Mazin present throughout session patient stating she is chronic pain that she has been accepted at [facility] for attempts to repair the chronic pain that is secondary to laceration of her left hand. She states she was somewhat frustrated with her movie machine operator. She states though he just statements made out of frustration. She adamantly denies suicidality homicidality voices or visions. Patient is an active client at the present time with Dr. Clifton euceda who prescribed multiple medications for her depression. She sees him monthly and states she has been cooperative with medication and appointments. She also has a pain doctor in [facility]. She states she lives by herself but has a very supportive boyfriend. She denies any prior psychiatric hospitalizations. Denies any prior suicidal ideation attempts or plans. At the present time patient does not meet Hancock act criteria I will lift the Hancock act. Patient to be discharged to herself. No Rx by me. She may continue her own schedule medications at home. Follow-up with Dr. Clifton euceda and her pain doctor Review of Systems Constitutional: DENIES: Diaphoretic episodes, Fatigue, Fever, Weight gain, Weight loss, Chills, Dizziness, Change in appetite, Night Sweats Endocrine: DENIES: Abnorml menstrual pattern, Heat/cold intolerance, Polydipsia , Polyuria, Polyphagia Eyes: DENIES: Blurred vision, Diplopia, Eye inflammation, Eye pain, Vision loss , Photosensitivity, Double Vision Ears, nose, mouth, throat: DENIES: Tinnitus, Hearing loss, Vertigo, Nasal discharge, Oral lesions, Throat pain, Hoarseness, Ear Pain, Running Nose, Epistaxis, Sinus Pain, Toothache, Odynophagia Respiratory: DENIES: Apneas, Cough, Snoring, Wheezing, Hemoptysis, Sputum production, Shortness of breath Cardiovascular: DENIES: Chest pain, Palpitations, Syncope, Dyspnea on Exertion , PND, Lower Extremity Edema, Orthopnea, Claudication Gastrointestinal: DENIES: Abdominal pain, Black stools, Bloody stools, Constipation, Diarrhea, Nausea, Vomiting, Difficulty Swallowing, Anorexia Genitourinary: DENIES: Abnormal vaginal bleeding, Dysmenorrhea, Dyspareunia, Sexual dysfunction, Urinary frequency, Urinary incontinence, Urgency, Hematuria , Dysuria, Nocturia, Vaginal discharge Musculoskeletal: COMPLAINS OF: Joint pain Integumentary: DENIES: Abnormal pigmentation, Pruritus, Rash, Nail changes, Breast masses, Breast skin changes, Nipple discharge Hematologic/lymphatic: DENIES: Bruising, Lymphadenopathy Immunologic/allergic: DENIES: Eczema, Urticaria Neurologic: DENIES: Abnormal gait, Headache, Localized weakness, Paresthesias, Seizures, Speech Problems, Tremor, Poor Balance Psychiatric: COMPLAINS OF: Anxiety, Depression Past Psych History Psychological trauma history Unable to ascertain at this time Violence risk - others (6 mos) Denies Violence risk - self (6 mos) Denies Substance Abuse History Drugs/Alcohol past 12 months Denies Past Family Social History Coded Allergies: No Known Allergies (Verified , 10/31/16) Active Scripts Methocarbamol (Robaxin)500 Mg [id number] Mg PO QID PRN (MUSCLE SPASM) #30 TAB Ref 0 Prov:Amanda Cornell 08/15/16 Ketorolac 10 Mg Tab10 Mg PO TID PRN (PAIN SCALE 1 TO 10) 5 Days Ref 0 Prov:Amanda Cornell 08/15/16 Ibuprofen 600 Mg [id number] Mg PO Q6H PRN (Pain/Inflammation) #60 TAB Ref 0 Prov:Aria Flores 07/03/16 Oxycodone-Acetaminophen (Percocet)10-325 mg Tab1 Tab PO Q8HR PRN (PAIN) #90 TAB Ref 0 Prov:Osman Yo MD 06/20/16 Reported Medications Carisoprodol (Soma)350 Mg [id number] Mg PO BID PRN (PAIN) Ref 0 06/20/16 Venlafaxine ER 24 HR (Effexor XR 24 HR)75 Mg [id number] Mg PO DAILY #30 CAP Ref 0 06/14/16 Haloperidol 1 Mg Tab1 Mg PO BID Ref 0 06/01/16 Alprazolam (Xanax)1 Mg Tab1 Mg PO Q6H PRN (ANXIETY) Ref 0 06/01/16 Amphetamine-Dextroamphetamine (Adderall)30 Mg Tab30 Mg PO DAILY #30 TAB Ref 0 Avoid late evening doses. Space doses at least 4 to 6 hours if more than once/day dosing. 06/01/16 Current Medications Medications (Trade) Dose Ordered Sig/Theo Route Start Time Stop Time Status Last Admin (Benadryl) 50 mg HS PRN PO 10/31/16 21:00 10/31/16 23:45 (Tylenol) 650 mg Q4H PRN PO 10/31/16 21:00 11/01/16 11:24 (Milk Of Magnesia Liq) 30 ml DAILY PRN PO 10/31/16 21:00 (Mag-Al Plus Susp Liq) 30 ml Q6H PRN PO 10/31/16 21:00 (Habitrol 21 Mg Patch.24 Hr) 1 patch DAILY T-DERMAL 11/01/16 09:00 (Atarax) 50 mg Q6H PRN PO 10/31/16 21:00 11/01/16 12:37 (Cogentin) 1 mg Q12H PRN PO 10/31/16 21:00 (Cogentin Inj) 1 mg Q12H PRN IM 10/31/16 21:00 (Romazicon Inj) 0.2 mg Q1M PRN IV PUSH 10/31/16 21:00 (Ativan) 1 mg Q4H PRN PO 10/31/16 21:00 (Ativan Inj) 1 mg Q4H PRN IV PUSH 10/31/16 21:00 (Ativan) 2 mg Q2H PRN PO 10/31/16 21:00 (Ativan Inj) 2 mg Q2H PRN IV PUSH 10/31/16 21:00 (Ativan Inj) 2 mg Q1H PRN IV PUSH 10/31/16 21:00 (Ativan Inj) 2 mg Q15M PRN IV PUSH 10/31/16 21:00 Miscellaneous Information 1 DAILY T-DERMAL 11/01/16 09:00 Family History Patient denies any mental health issues and family Social History Patient single lives by herself has a supportive boyfriend Patient's Strengths (min. 2) Patient verbal irritable [facility] Physical Exam Patient seen screen in ED exam reviewed and agreed with. Patient laying quietly in bed in her room no acute distress no respiratory distress. Complaining of some vague pain through left wrist and diffusely over joints Vital Signs Vital Signs Date Time Temp Pulse Resp B/P Pulse Ox O2 Delivery O2 Flow Rate FiO2 11/01/16 06:08 98.7 95 18 123/70 95 10/31/16 22:27 Room Air Mental Status Examination Alert oriented thin white female lying calmly in bed she has normal active. Mood is euthymic to mildly dysphoric affect shows good range intensity. Speech rate and rhythm within normal limits though no formal thought disorders. No auditory or visual hallucinations no delusions. Insight and judgment is poor to fair cognition grossly intact Appearance Clean and neat Speech: Unremarkable Orientation: x3 Memory: Unremarkable Thought Process: Linear Thought Content: Unremarkable Language Fair Fund of Knowledge Fair Hallucination Type: None Attention and Concentration: Other (fair) Suicidal Ideation: No (denies) Previous Suicide Attempts: No (denies) Homicidal Ideation: No (denies) Previous Homicide Attempts: No (denies) Insight: Poor Judgment: Poor Affect: Other (good range intensity) Mood: Euthymic (mildly dysphoric) Motor Activity: Normal gait Assessment & Plan Problem List: (1) Adjustment disorder with mixed disturbance of emotions and conduct ICD Code: F43.25 Assessment & Plan Estimated LOS: days patient does not meet Hancock criteria will lift Hancock act patient to be discharged to herself today no Rx by me, follow-up Dr. Clifton euceda , follow-up pain doctor, may continue own schedule medications at home Discharge Planning See above Request HC Surrog/Guard Advoc?: No Jose Adam MD November 01, 2016 13:54
--- NOTE | 2016-11-01 13:59 | HHI.DS ---
Psychiatry Discharge Summary Inpatient Psychiatric care?: Yes Advance Directive: No Reason Not Provided: Not interested Mental Health AdvanceDirective: No Health Care Proxy: No Admission Admission Date October 31, 2016 at 20:47 Admission Diagnosis: (1) Adjustment disorder with mixed disturbance of emotions and conduct ICD Code: F43.25 Brief History Patient is a 41-year-old white female who comes here under [place] act by the [facility] dated 10/31/16 at 1:21 PM that documented reviewed and agreed with essentially stating that the patient was upset with her city attorney and stated she would be better off . It appears patient also sent approximately 200 text messages stating that she was upset with them and would be better off . Patient seen screened in the ED urine toxicology positive for that amines and benzodiazepines. Of interest patient also seen here on about 11/16/10 that that time urine toxicology positive for opiates and benzodiazepines cocaine and marijuana. At the present time patient laying quietly in her bed nurse Mazin present throughout session patient stating she is chronic pain that she has been accepted at [facility] for attempts to repair the chronic pain that is secondary to laceration of her left hand. She states she was somewhat frustrated with her print controller. She states though he just statements made out of frustration. She adamantly denies suicidality homicidality voices or visions. Patient is an active client at the present time with Dr. Clitfon euceda who prescribed multiple medications for her depression. She sees him monthly and states she has been cooperative with medication and appointments. She also has a pain doctor in [facility]. She states she lives by herself but has a very supportive boyfriend. She denies any prior psychiatric hospitalizations. Denies any prior suicidal ideation attempts or plans. At the present time patient does not meet Hancock act criteria I will lift the Hancock act. Patient to be discharged to herself. No Rx by me. She may continue her own schedule medications at home. Follow-up with Dr. Clifton euceda and her pain doctor Tobacco Use In Past 30 Days: Cigarettes But Not Daily Alcohol Use: Never Hospital Course Please see above note dictated under brief history. Patient does not meet Hancock criteria will lift Hancock act, will discharge to herself today. No Rx by me. We continue own schedule medications at home. Follow-up Dr. Judson euceda, follow-up pain Results Blood Pressure 123 / 70 Vital Signs Date Time Temp Pulse Resp B/P Pulse Ox O2 Delivery O2 Flow Rate FiO2 11/01/16 06:08 98.7 95 18 123/70 95 10/31/16 22:27 Room Air Laboratory Tests Test 10/31/16 15:00 Urine Occult Blood TRACE (NEG) Urine Bacteria RARE /hpf (NONE) Alkaline Phosphatase 43 U/L (45-117) Urine Amphetamines Screen POS (NEG) Urine Benzodiazepines Screen POS (NEG) Laboratory Results Test 11/01/16 08:15 Triglycerides Level 89 MG/DL (42-150) Cholesterol Level 155 MG/DL (120-200) LDL Cholesterol 92 MG/DL (0-99) HDL Cholesterol 45.6 MG/DL (40.0-60.0) Summary of Procedures None done Pending results at discharge: No Medications # of Antipsychotic meds at D/C: 0 Approp Antipsych med options 1 - Minimum of three failed multiple trials of monotherapy. 2 - Documented plan to taper to monotherapy due to previous use of multiple meds OR cross-taper in progress at D/C. 3 - Documentation of augmentation of Clozapine. 4 - Justification other than those listed in allowable values 1-3, document here : Discharge Discharge Date: November 01, 2016 Discharge Diagnosis: (1) Adjustment disorder with mixed disturbance of emotions and conduct Diagnosis: Principal ICD Code: F43.25 Mental Status Exam at Disch Alert oriented white female lying calmly in bed in her room. Patient is normoactive, mood euthymic with mild dysphoria, affect good range intensity. Speech rate and rhythm within normal limits no formal thought disorders. No auditory or visual hallucinations no delusions. Insight and judgment is poor to fair cognition grossly intact Pt Condition on Discharge: Stable Discharge Disposition: Discharge Home Discharge Instructions Diet Instructions: As Tolerated, No Restrictions Activities you can perform: Regular-No Restrictions Scheduled Appointment: Dr. Judson euceda, private pain Discharge Time > 30 minutes Discharge/Advance Care Plan Health Problems: (1) Adjustment disorder with mixed disturbance of emotions and conduct Goals to promote your health * To prevent worsening of your condition and complications * To maintain your health at the optimal level Directions to meet your goals Take your medications as prescribed Follow your dietary instruction Follow activity as directed Keep your appointments as scheduled Take your immunizations and boosters as scheduled If your symptoms worsen call your PCP, if no PCP go to Urgent Care Center or Emergency Room For 25/12 questions related to your inpatient stay or results of tests pending at discharge, please contact Dr. Jose Adam at Smoking is Dangerous to Your Health. Avoid second hand smoking Jose Adam MD November 01, 2016 13:59
[2016-11-01] MEDS ORDERED: IBUPROFEN 600 MG TAB PO ONE (14:15)
[2016-11-01 16:21] LABS: HEMOGLOBIN A1a 0.9 %; HEMOGLOBIN A1b 0.7 %; HEMOGLOBIN Ao 87.3 %; HEMOGLOBIN LA1C 1.8 %; HEMOGLOBIN P3 3.4 %
== END 2016-11-01 15:55 | disposition home or self-care (01) | DRG 882 ==
LOC: NEPD 14:35 → NEDA 20:47 → H260 23:15
PROVIDERS: ADMIT Psychiatry & Neurology Psychiatry; ATTEND Psychiatry & Neurology Psychiatry
DX: F43.25 Adjustment disorder with mixed disturbance of emotions and conduct (principal); G89.29 Other chronic pain; Z72.0 Tobacco use
CPT/HCPCS: 80053; 80061; 80307; 81001; 83036; 84703; 85025; 99285; Q0163